=== PATIENT | male | born 2000 | race Caucasian/White ===

== ENCOUNTER 2023-07-24 11:09 | Emergency (ER) | payer SELFPAY ==
[~2023-07-24] VITALS: Ht 172.7 cm; Wt 68.0 kg
[2023-07-24 11:18] VITALS: O2SAT 100
[2023-07-24] MEDS: KETOROLAC 30MG/ML VIAL IM ONE (13:30)
[2023-07-24] MEDS ORDERED: LIDO700A15 TP (13:31)
[2023-07-24] MEDS ORDERED: IBUP-2029 PO (13:31)
[2023-07-24 15:36] VITALS: BP 118/53; PULSE 65; RESP 18; TEMP 98.1
== END 2023-07-24 15:37 | disposition home or self-care (01) ==
LOC: ER 11:09
DX: K40.90 Unilateral inguinal hernia, without obstruction or gangrene, not specified as recurrent (principal)
CPT/HCPCS: 99283; 96372; J1885